=== PATIENT | female | born 2000 | race Caucasian/White ===

== ENCOUNTER 2020-10-18 19:05 | Emergency (ER) | payer OTHER, MEDICAID, SELFPAY ==
[2020-10-18 19:08] VITALS: BP 110/65; PULSE 83; RESP 18; TEMP 36.9; O2SAT 100; BMI 32.9
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
[2020-10-18] MEDS: Ibuprofen 600 MG TABLET PO (20:56)
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
== END 2020-10-18 21:02 | disposition home or self-care (01) ==
PROVIDERS: Emergency Provider Internal Medicine
DX: S29.9XXA Unspecified injury of thorax, initial encounter (principal); M54.6 Pain in thoracic spine; V43.52XA Car driver injured in collision with other type car in traffic accident, initial encounter; Y93.9 Activity, unspecified; Y92.410 Unspecified street and highway as the place of occurrence of the external cause; Y99.9 Unspecified external cause status; Z79.899 Other long term (current) drug therapy
CPT/HCPCS: 99284

== ENCOUNTER 2021-02-01 15:26 | Outpatient (REF) | payer MEDICAID, SELFPAY | END 2021-02-01 15:27 | disposition home or self-care (01) | LOC: HO.LAB 15:26 | PROVIDERS: Visit Provider Internal Medicine | DX: Z20.822 Contact with and (suspected) exposure to COVID-19 (principal) | CPT/HCPCS: C9803; U0003; U0005 ==

== ENCOUNTER 2021-09-21 06:35 | Emergency (ER) | payer MEDICAID, SELFPAY ==
[2021-09-21 06:49] VITALS: BP 135/79; PULSE 86; RESP 16; TEMP 36.8; O2SAT 99; BMI 33.3
--- NOTE | 2021-09-21 07:50 | ED.GENADULT ---
HPI - General Adult General Chief complaint: General Medical Stated complaint: 7 Weeks /vomiting Time Seen by Provider: 09/21/21 07:47 Source: patient Mode of arrival: ambulatory Limitations: no limitations History of Present Illness HPI narrative: 21-year-old female for about 7 weeks by date came in for evaluation of vomiting for the past week. Patient described frequent vomiting for the past week with epigastric tenderness, patient declined any pelvic contractions or vaginal bleeding or spotting. Patient was prescribed a suppository medication by her OB for vomiting control, patient vomited this morning and felt lightheadedness and dizzy decided to come to the ED for further evaluation. Related Data Previous Rx's Medication Instructions Recorded ibuprofen 600 mg tablet 600 mg PO Q6H PRN pain #20 tabs 10/18/20 ondansetron 4 mg disintegrating 4 mg PO Q8-12H PRN nausea and 09/21/21 tablet vomiting #5 tabs Allergies Allergy/AdvReac Type Severity Reaction Status Date / Time No Known Allergies Allergy Verified 10/18/20 20:21 Review of Systems Review of Systems: All other systems are reviewed and are negative Constitutional: Reports as per HPI and Reports no additional constitutional complaints Eyes: Reports as per HPI and Reports no additional eye complaints Reports system reviewed and no additional complaints, except as documented Cardiovascular: Reports as per HPI and Reports no additional cardiovascular complaints Respiratory: Reports as per HPI and Reports no additional respiratory complaints Gastrointestinal: Reports as per HPI and Reports no additional gastrointestinal complaints Genitourinary: Reports no additional female genitourinary complaints Musculoskeletal: Reports no additional musculoskeletal complaints Skin/Breast: Reports system reviewed and no additional complaints, except as docu Psychiatric: Reports no additional psychiatric complaints Endocrine: Reports no additional endocrine complaints Hematologic/Lymphatic: Reports no additional hematologic/lymphatic complaints Allergic/Immunologic: Reports no additional allergic/immunologic complaints Reports system reviewed and no additional complaints, except as documented and Reports Abnormal speech present PMFSH Past Medical History Medical History No acute medical problems Surgical History No history of previous surgery Social History Social History Advance Directives: No Advance Directives Information Provided: Yes Physical Exam ED Vital Signs: Vital Signs - 24 hr 09/21/21 06:49 Temperature 98.3 F Pulse Rate 86 Respiratory Rate 16 Blood Pressure 135/79 Pulse Oximetry 99 Oxygen Delivery Method Room Air BMI result Body Mass Index 33.3 Vital signs have been reviewed as appeared to be correct. Blood pressure normal. Heart rate normal. Respiration rate normal. Temperature normal. Oxygen saturation normal. Appearance: Alert. Oriented X3. No acute distress. Head: Normal external exam. Normocephalic. Atraumatic. No Yen signs noted. No raccoon eyes noted Eyes: PERRLA. EOMI. Conjunctiva and sclera normal. Eyelids normal. ENT: TM's Normal. Pharynx normal. Uvula midline. Moist mucous membranes. No trismus noted. No drooling noted. No muffled voice noted. Neck: Normal inspection. Neck supple. FROM. No adenopathy. Thyroid Normal. No meningeal signs. No neck mass noted. CVS: Normal heart rate and rhythm. Heart sound normal. No murmurs noted. Pulses normal throughout. Respiratory: No respiratory distress. Painless inspiration. Breath sounds normal. No wheezes/rales/rhonchi noted. Chest nontender. No accessory muscle usage noted or decreased air movement noted. Abdomen: Soft and nontender. Bowel sounds normal in all 4 quadrants. No distention noted. No organomegaly noted. No visible injury noted. Back: No CVA tenderness. Full range of motion noted. Skin: Skin warm and dry. Normal skin color. Normal skin turgor. No rashes/lesions/lacerations noted. Extremities: No lower extremity edema. Extremities exhibit normal range of motion. Extremities nontender. Neuro: Oriented X 3. Cranial nerve exam: II-XII are grossly intact No motor deficit. No sensory deficit. Reflexes normal. Course Course Course Narrative: 21-year-old female came in with vomiting thought to be hyper emesis gravidarum, patient's symptoms improved with IV fluid and IV Zofran, able to tolerate p.o. intake, no lightheadedness, still complaining of mild epigastric tenderness assuming from vomiting and gastritis. Medical Decision Making Lab Data Lab results reviewed: Yes I reviewed the patient's lab results. Result diagrams: 09/21/21 08:04 09/21/21 08:04 Labs: Lab Results 09/21/21 09/21/21 09/21/21 Range/Units 08:04 08:04 10:41 WBC 10.4 (4.8-10.8) X10*3/uL RBC 4.85 (4.20-5.50) X10*6/uL Hgb 12.6 (12.0-16.0) g/dl Hct 38.6 (37.0-47.0) % MCV 79.6 L (80.0-98.0) fL MCH 26.0 L (27.0-33.0) pg MCHC 32.6 (31.0-35.0) g/dl RDW 12.8 (11.0-16.0) % Plt Count 233 (160-400) X10*3/uL MPV 11.3 (9.4-12.3) fL Immature Gran % (Auto) 0.2 (0.0-0.4) % Neut % (Auto) 74.2 H (45-73) % Lymph % (Auto) 19.5 L (20-40) % [place] % (Auto) 5.4 (2-11) % Eos % (Auto) 0.4 (0-4) % Baso % (Auto) 0.3 (0-2) % Lymph # (Auto) 2.0 (1.2-4.9) X10*3/uL [place] # (Auto) 0.6 (0.1-1.2) X10*3/uL Eos # (Auto) 0.0 (0.0-0.4) X10*3/uL Baso # (Auto) 0.0 (0.0-0.2) X10*3/uL Abs Immat Gran (auto) 0.02 (0.00-0.03) X10*3/uL Absolute Neuts (auto) 7.7 (2.0-8.3) x10*3/uL Absolute Nucleated RBC 0.000 (0.0-0.012) X10*3/uL Nucleated RBC % (auto) 0.0 (0.0-0.2) /100WBC Sodium 137 (135-145) mmol/L Potassium 4.0 (3.3-5.1) mmol/L Chloride 102 (96-108) mmol/L Carbon Dioxide 25 (22-29) mmol/L Anion Gap 14 (12-20) BUN 9 (9-16) mg/dL Creatinine 0.84 (0.5-1.4) mg/dL Estim Creat Clear Calc 103.7 Estimated GFR > 60 Random Glucose 97 (60-115) mg/dL Calcium 9.7 (8.4-10.2) mg/dL Total Bilirubin 0.8 (0.0-1.0) mg/dL Direct Bilirubin 0.3 (0.0-0.5) mg/dL AST 14 (5-31) U/L ALT 13 (0-31) U/L Alkaline Phosphatase 89 (39-117) U/L Total Protein 8.7 H (6.5-8.0) g/dL Albumin 4.9 (3.5-5.0) g/dL Lipase 16 (8-78) U/L Beta HCG, Quant [id number] mIU/mL Urine Color DK YELLOW Urine Appearance HAZY Urine pH 6.0 (5.0-8.0) Ur Specific [place] >= 1.030 H (1.005-1.025) Urine Protein TRACE (NEG-TRACE) MG/DL Urine Glucose (UA) NEG (NEG) MG/DL Urine Ketones 40 (NEG) MG/DL Urine Blood NEG (NEG) Urine Nitrite NEG (NEG) Ur Leukocyte Esterase NEG (NEG) Discharge Plan Discharge Clinical Impression: Hyperemesis gravidarum Patient Disposition: Home, Self-Care Instructions: Hyperemesis Gravidarum (ED) Prescriptions: New ondansetron 4 mg tablet,disintegrating 4 mg PO Q8-12H PRN (Reason: nausea and vomiting) Qty: 5 0RF No Action ibuprofen 600 mg tablet 600 mg PO Q6H PRN (Reason: pain) Qty: 20 0RF Referrals: Desiree Etienne, [employer] [Primary Care Provider] -
[2021-09-21] MEDS: 0.9 % Sodium Chloride 1,000 ML 999 ML IV (08:05)
[2021-09-21] MEDS: ondansetron HCL 4 MG/2 ML VIAL IVPUSH (08:05)
[2021-09-21 08:09] LABS: MANUAL DIFF FLAG NO
[2021-09-21 08:11] LABS: Basophils Percent Auto 0.3 % (0-2); Eosinophils Percent Auto 0.4 % (0-4); Hematocrit 38.6 % (37.0-47.0); Hemoglobin 12.6 g/dl (12.0-16.0); Imm Gran Abs Auto 0.02 X10*3/uL (0.00-0.03); Imm Gran Pct Auto 0.2 % (0.0-0.4); Lymphocytes Percent Auto 19.5 % (20-40); Mean Corpuscular HGB Conc 32.6 g/dl (31.0-35.0); Mean Corpuscular Volume 79.6 fL (80.0-98.0); Mean Platelet Volume 11.3 fL (9.4-12.3); Monocytes Absolute Auto 0.6 X10*3/uL (0.1-1.2); Monocytes Percent Auto 5.4 % (2-11); Neutrophils Absolute Auto 7.7 x10*3/uL (2.0-8.3); Neutrophils Percent Auto 74.2 % (45-73); Platelet Count 233 X10*3/uL (160-400); Red Blood Count 4.85 X10*6/uL (4.20-5.50); Red Cell Distribution Width 12.8 % (11.0-16.0); White Blood Count 10.4 X10*3/uL (4.8-10.8)
[2021-09-21 08:28] LABS: Alanine Aminotransferase 13 U/L (0-31); Albumin Level 4.9 g/dL (3.5-5.0); Alkaline Phosphatase 89 U/L (39-117); Anion Gap 14 (12-20); Aspartate Amino Transferase 14 U/L (5-31); Bilirubin Direct 0.3 mg/dL (0.0-0.5); Bilirubin Total 0.8 mg/dL (0.0-1.0); Blood Urea Nitrogen 9 mg/dL (9-16); Calcium 9.7 mg/dL (8.4-10.2); Carbon Dioxide 25 mmol/L (22-29); Chloride 102 mmol/L (96-108); Creatinine Clr Calc Pharmacy 103.7; Estimated Glomerular Filt Rate > 60; Glucose Random 97 mg/dL (60-115); Lipase 16 U/L (8-78); Sodium 137 mmol/L (135-145); Total Protein 8.7 g/dL (6.5-8.0)
[2021-09-21 10:47] LABS: Appearance Urine HAZY; Color Urine DK YELLOW; Glucose Urine UA NEG (NEG); Leukocyte Esterase Urine NEG (NEG); Nitrite Urine NEG (NEG); Specific Gravity - Urine >= 1.030 (1.005-1.025); Urine Blood NEG (NEG); Urine Ketones 40 MG/DL (NEG); Urine Protein TRACE MG/DL (NEG-TRACE)
== END 2021-09-21 11:28 | disposition home or self-care (01) ==
PROVIDERS: Emergency Provider Emergency Medicine; PCP Registered Nurse
DX: O26.91 Pregnancy related conditions, unspecified, first trimester (principal); Z3A.01 Less than 8 weeks gestation of pregnancy; Z79.899 Other long term (current) drug therapy
CPT/HCPCS: 36415; 80048; 80076; 81003; 83690; 84702; 85025; 96374; 99283; 99284; J2405

== ENCOUNTER 2022-02-17 14:46 | Outpatient (REF) | payer MEDICAID, SELFPAY ==
[2022-02-17 15:21] LABS: COVID-19 Test Positive (Negative); IDNOW Serial# BCCEAD1C
== END 2022-02-17 14:47 | disposition home or self-care (01) ==
LOC: HO.LAB 14:46
PROVIDERS: Visit Provider Internal Medicine
DX: Z20.822 Contact with and (suspected) exposure to COVID-19 (principal)
CPT/HCPCS: 87635; C9803

== ENCOUNTER 2023-06-12 10:22 | Outpatient (REF) | payer MEDICAID, SELFPAY ==
[2023-06-12 12:44] LABS: Estimated Average Glucose 111 mg/dL; Hemoglobin A1c % 5.5 % (<6.0)
[2023-06-12 13:23] LABS: Anion Gap 11 (12-20); Blood Urea Nitrogen 8 mg/dL (9-16); Calcium 8.8 mg/dL (8.4-10.2); Carbon Dioxide 23 mmol/L (22-29); Chloride 109 mmol/L (96-108); Estimated Glomerular Filt Rate > 60; Glucose Random 84 mg/dL (60-115); Potassium 4.2 mmol/L (3.3-5.1); Sodium 139 mmol/L (135-145)
[2023-06-13 05:00] LABS: HIV AB/AG Nonreactive (Nonreactive); HIV Num 1 0.06 S/CO (0.00-0.99); ~HepC Num1 0.13 S/CO (0.00-0.79); ~Hepatitis C Antibody Nonreactive (Nonreactive)
[2023-06-13 07:02] LABS: CT PCR NOT DETECTED (Not Detect.); NG PCR NOT DETECTED (Not Detect.)
[2023-06-13 11:38] LABS: RPR Rapid Plasma Reagin NON-REACTIVE (NON-REACTIVE)
== END 2023-06-12 10:23 | disposition home or self-care (01) ==
LOC: HO.HHCL 10:22
PROVIDERS: Visit Provider Nurse Practitioner Family
DX: Z00.00 Encounter for general adult medical examination without abnormal findings (principal); Z11.4 Encounter for screening for human immunodeficiency virus [HIV]; Z11.3 Encounter for screening for infections with a predominantly sexual mode of transmission
CPT/HCPCS: 0353U; 36415; 80048; 83036; 86592; 86803; 87389

== ENCOUNTER 2023-09-18 14:43 | Outpatient (REF) | payer MEDICAID, SELFPAY ==
[2023-09-18 16:10] LABS: MANUAL DIFF FLAG NO
[2023-09-18 16:17] LABS: Basophils Percent Auto 0.3 % (0-2); Eosinophils Absolute Auto 0.2 X10*3/uL (0.0-0.4); Eosinophils Percent Auto 1.5 % (0-4); Hematocrit 34.3 % (37.0-47.0); Hemoglobin 10.8 g/dl (12.0-16.0); Imm Gran Abs Auto 0.02 X10*3/uL (0.00-0.03); Imm Gran Pct Auto 0.2 % (0.0-0.4); Lymphocytes Absolute Auto 3.1 X10*3/uL (1.2-4.9); Lymphocytes Percent Auto 32.3 % (20-40); Mean Corpuscular HGB Conc 31.5 g/dl (31.0-35.0); Mean Corpuscular Hemoglobin 24.1 pg (27.0-33.0); Mean Corpuscular Volume 76.6 fL (80.0-98.0); Mean Platelet Volume 12.1 fL (9.4-12.3); Monocytes Absolute Auto 0.6 X10*3/uL (0.1-1.2); Monocytes Percent Auto 5.7 % (2-11); Neutrophils Absolute Auto 5.8 x10*3/uL (2.0-8.3); Platelet Count 194 X10*3/uL (160-400); Red Blood Count 4.48 X10*6/uL (4.20-5.50); Red Cell Distribution Width 14.9 % (11.0-16.0); White Blood Count 9.7 X10*3/uL (4.8-10.8)
[2023-09-18 16:40] LABS: Alanine Aminotransferase 11 U/L (0-31); Alkaline Phosphatase 77 U/L (39-117); Anion Gap 10 (12-20); Aspartate Amino Transferase 13 U/L (5-31); Bilirubin Total 0.3 mg/dL (0.0-1.0); Blood Urea Nitrogen 9 mg/dL (9-16); Carbon Dioxide 23 mmol/L (22-29); Chloride 108 mmol/L (96-108); Estimated Glomerular Filt Rate > 60; Glucose Random 103 mg/dL (60-115); Potassium 3.7 mmol/L (3.3-5.1); Sodium 137 mmol/L (135-145); Total Protein 7.5 g/dL (6.5-8.0)
[2023-09-18 16:48] LABS: HCG Quantitative < 2 mIU/mL
== END 2023-09-18 14:44 | disposition home or self-care (01) ==
LOC: HO.HHCL 14:43
PROVIDERS: Visit Provider Nurse Practitioner Family
DX: R11.2 Nausea with vomiting, unspecified (principal)
CPT/HCPCS: 36415; 80053; 84702; 85025

== ENCOUNTER 2023-10-04 08:27 | Outpatient (REF) | payer MEDICAID, SELFPAY ==
--- NOTE | ~2023-10-04 | US_ITS ---
EXAMINATION: US ABDOMEN COMPLETE CLINICAL INFORMATION: Right upper quadrant pain, frequent emesis, negative hCG, question gallstones. COMPARISON: X-ray K[facility] 04/20/2018. TECHNIQUE: Real-time imaging of the abdominal viscera. Limited visualization due to bowel gas and body habitus. FINDINGS: PANCREAS: Limited visualization of pancreatic tail and head. Imaged portion of pancreatic body is unremarkable. ABDOMINAL AORTA: Limited visualization. INFERIOR VENA CAVA: Visualized portions are normal. LIVER: Hepatomegaly, 16.0 cm. Increased hepatic parenchymal heterogeneity and echogenicity could be associated with hepatocellular disease/hepatic steatosis and substantially limits visualization. Correlation with liver function tests and clinical exam recommended to determine further management. GALLBLADDER: No gallstones. No gallbladder wall thickening. COMMON BILE DUCT: Normal in caliber measuring 0.2 cm in diameter. RIGHT KIDNEY: No hydronephrosis. No renal calculi. Limited visualization. The kidney measures 12.3 cm in maximum dimension. LEFT KIDNEY: No hydronephrosis. No renal calculi. Limited visualization. The kidney measures 10.7 cm in maximum dimension. SPLEEN: Normal. The spleen measures 11.1 cm in maximum dimension. FREE FLUID: None. US/US abdomen complete IMPRESSION: Hepatomegaly, 16.0 cm. Increased hepatic parenchymal heterogeneity and echogenicity could be associated with hepatocellular disease/hepatic steatosis and substantially limits visualization. Correlation with liver function tests and clinical exam recommended to determine further management.
== END 2023-10-04 08:28 | disposition home or self-care (01) ==
LOC: HO.US 08:27
PROVIDERS: PCP Nurse Practitioner Family; Visit Provider Nurse Practitioner Family
DX: R11.2 Nausea with vomiting, unspecified (principal)
CPT/HCPCS: 76700

== ENCOUNTER 2023-10-19 14:01 | Outpatient (REF) | payer MEDICAID, SELFPAY ==
[2023-10-23 21:52] LABS: Immunoglobulin A 377 mg/dL (47-310); Transglutaminase IgA <1.0 U/mL
== END 2023-10-19 14:02 | disposition home or self-care (01) ==
LOC: HO.HHCL 14:01
PROVIDERS: Visit Provider Nurse Practitioner Family
DX: K59.00 Constipation, unspecified (principal); R14.0 Abdominal distension (gaseous)
CPT/HCPCS: 36415; 82784; 86364

== ENCOUNTER 2023-11-22 13:14 | Outpatient (REF) | payer MEDICAID, SELFPAY | END 2023-11-22 13:15 | disposition home or self-care (01) | LOC: HO.LNP 13:14 | PROVIDERS: Visit Provider Nurse Practitioner Family | DX: R11.2 Nausea with vomiting, unspecified (principal) | CPT/HCPCS: 87338 ==

== ENCOUNTER 2024-04-23 08:41 | Emergency (ER) | payer MEDICAID, SELFPAY ==
--- NOTE | ~2024-04-23 | US_ITS ---
EXAMINATION: US FIRST TRIMESTER OB HISTORY: abd pain, 6 wks preg TECHNIQUE: Endovaginal scanning was performed. FINDINGS: There is a single, live intrauterine . Incidental note is made of a calcified fibroid on the left measuring 2.7 x 2.0 x 2.2 cm. An additional left-sided fibroid is noted measuring 1.1 x 0.7 x 1.1 cm. AUA = 5 weeks 6 days MARGARITA(AUA) = 12/18/2024 LMP = 03/11/2024 GA(LMP) = 6 weeks 1 days MARGARITA(LMP) = 12/16/2024 CRL = 0.25 cm Yolk Sac: seen FHR = 102 bpm Right ovary: The right ovary is unremarkable in appearance measuring 3.2 x 1.9 x 2.2 cm. Left ovary: The left ovary is not visualized. Cul-de-sac: No free fluid US/US OB pelvic and transvaginal IMPRESSION: Single, live intrauterine of estimated gestational age 5 weeks, 6 days. The heart rate is 102 bpm which is low. Follow-up is recommended.. Electronically signed by: Edward Spain MD 04/23/2024 01:26 PM [facility]
[2024-04-23 09:08] VITALS: BP 138/75; PULSE 87; RESP 16; TEMP 37; O2SAT 98; BMI 34.7
[2024-04-23 09:33] LABS: MANUAL DIFF FLAG NO
[2024-04-23 09:34] LABS: Basophils Percent Auto 0.3 % (0-2); Eosinophils Percent Auto 0.3 % (0-4); Hematocrit 38.7 % (37.0-47.0); Hemoglobin 12.7 g/dl (12.0-16.0); Imm Gran Abs Auto 0.02 X10*3/uL (0.00-0.03); Imm Gran Pct Auto 0.3 % (0.0-0.4); Lymphocytes Absolute Auto 1.5 X10*3/uL (1.2-4.9); Lymphocytes Percent Auto 22.4 % (20-40); Mean Corpuscular HGB Conc 32.8 g/dl (31.0-35.0); Mean Corpuscular Hemoglobin 24.4 pg (27.0-33.0); Mean Corpuscular Volume 74.3 fL (80.0-98.0); Mean Platelet Volume 11.2 fL (9.4-12.3); Monocytes Absolute Auto 0.6 X10*3/uL (0.1-1.2); Monocytes Percent Auto 8.5 % (2-11); Neutrophils Absolute Auto 4.6 x10*3/uL (2.0-8.3); Neutrophils Percent Auto 68.2 % (45-73); Platelet Count 186 X10*3/uL (160-400); Red Blood Count 5.21 X10*6/uL (4.20-5.50); Red Cell Distribution Width 14.3 % (11.0-16.0); White Blood Count 6.7 X10*3/uL (4.8-10.8)
--- OUTSIDE RECORDS SUMMARY | 2024-04-23 09:52 | XMS_ITS | Encounter Summary ---
Author Organization [employer] Address [address] [place] [address] Care Team Providers Care Precision Lens Technician Name Role Phone Danielle Hinkle NP Primary Care Provider [phone] Reason for Visit * Reason Onset Date Comments Medication Question 10/17/2023 Encounter Details Date Type Department Care Team ([facility] st Contact Info) Description 10/17/2023 Telephone [facility] [address] [place] [address] Danielle Hinkle NP [address] [place] [address] Medication Question Social History Tobacco Use Types Packs/Day Years Used Date Smoking Tobacco: Never Alcohol Use Standard Drinks/Week Comments Never 0 (1 standard drink = 0.6 oz pur e alcohol) Alcohol Answer Date Recorded Frequency of Alcohol Consumption Not on file 09/13/2023 Average Number of Drinks Not on file 024 Frequency of Binge Drinking Not on file 08/19 Score 0 09/13/2023 Depression Answer Date Recorded Patient Health Questionnaire-9 Score 0 06/12/2023 Patient Health Questionnaire-9 Score 0 06/12/2023 Last PHQ-9: Questionnaire Data Not on file 0 06/12/2023 Housing Stability Answer Date Recorded What is your housing situation today? I have john montero 06/12/[address] you li ve. Do you have problems with any of the following? None of the above 06/12/2023 Food Insecurity Answer Date Recorded Within the past 12 months, y ou worried that your food would run out before you got money to buy more: Never True 06/12/2023 Within the past 12 months,th e food you bought just didn't last and you didn't have enough money to get more: Never True Transportation Answer Date Recorded In the past 12 months, has l ack of transportation kept you from medical appts, meetings, work or from getting things needed for daily living? No 06/12/2023 Utilities Answer Date Recorded In the past 12 months, has t he electric, gas, oil or water company threatened to shut off services in your home? 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 T/C to Pt. To inform that psyllium is ready to picking belt operator. Please review and advise. * Telephone Encounter - Leann Cronin - 10/17/2023 9:22 AM EDT Tc from pt calling to inform insurance does not cover medication terbinafine (LamISIL AT) 1 % creamand pharmacy is out of stock for psyllium (Metamucil) 0.36 g capsule . Pt would like to know if a different medications can be sent. Please call pt to clarify. documented in this encounter Plan of Treatment Not on file documented as of this encounter Visit Diagnoses Not on filedocumented in this encounter Additional Health Concerns Assessment Noted Time PHQ-9 Depression Total Score: 0 06/12/19 24 9:01 AM EDT documented as of this encounter Care Teams Precision Lens Technician Relationship Specialty Start Date End Date Danielle Hinkle NP [address] [place] [address] PCP - General Family Medicine 04/28/23 documented as of this encounter
--- OUTSIDE RECORDS SUMMARY | 2024-04-23 09:52 | XMS_ITS | Clinical Summary ---
Author Organization [facility] Address [address] [place] [address] Care Team Providers Care Asset Protection Associate Name Role Phone Unavailable Primary Care Provider Unavailabl e Allergies Active Allergy Reactions Criticality Noted Date Comments Cat Hair Standardized Allergenic Extract Itching 10/11/2021 With contact, gets very itchy, and sneezing. Dog Dander Itching 10/11/2021 Gets itchy with contact and sneezing. Levonorgestrel-Ethinyl Estrad 09/30/2020 Medications Medication Sig Dispensed Refills Start Date End Date Status PNV no.95/ferrous fum/folic ac ( ORAL) TAKE 1 TABLET BY MOUTH EVERY DAY 10/04/2022 Active acetaminophen (TYLENOL) 325 mg tablet Take 2 Tablets by mouth every 6 hours as needed for Pain for up to 10 days. 09/29/2021 Active aspirin 81 mg EC tablet Take 2 Tablets by mouth daily for 180 days. 02/17/2022 Active docusate sodium (COLACE) 100 mg capsule Take 1 Capsule by mouth daily for 90 days. Take 1 capsule by mouth daily 04/14/2022 Active ferrous sulfate 325 mg (65 mg elemental iron) tablet Take 1 tablet (325 mg total) by mouth 1 (one) time each day. 02/14/2022 Active glycerin-witch Tammy (A.E.R. Witch Tammy) 12.5-50 % pads Apply to anorectal area as needed up to 6 times daily or after each bowel movement 04/14/2022 Active pyridoxine (VITAMIN B-6) 25 mg tablet Take 1 Tablet by mouth 3 times daily as needed (Nausea). 12/08/2021 Active Active Problems Problem Noted Date Diagnosed Date Essential (primary) hypertension 04/14/2022 Overview (04/22/2024): no medications Start ASA 162 mg at 12 weeks until delivery for pre-eclampsia prevention Level 2 anatomy US Q 4 week growth US starting at 28 weeks Weekly NST with BP and urine protein dip at 32 weeks Twice weekly testing at 36 weeks Start meds for SBP> 160 or DBP> 110 Deliver 38-39 weeks on no meds Deliver 37-39 weeks on meds Reviewed with pt her medical history of HTN with her mother on the phone. States she had an episode of elevated BP at age 12 or 13. Never put on medications. No other elevated BP since. Last Assessment & Plan: NST reactive. Growth US ordered. Scheduled for IOL at 39 weeks on 05/02/22 @ 8pm. We reviewed the induction process. We also reviewed pain control options in labor. All questions answered. COVID-19 affecting in third trimester 02/17/2022 Overview (04/22/2024): Symptoms started 02/14/22, +Covid 02/17/22. COVID in *Mildly symptomatic (signs or sx without SOB or abnormal imaging) OR Moderately symptomatic (lower respiratory disease by clinical or imaging assessment AND O2 sat >93% RA): 81 mg ASA daily at diagnosis, growth 4-6 weeks after COVID or 32 weeks, whichever is later. No other surveillance. -32wk EFW 80%ile 03/14/22 Last Assessment & Plan: 32 week US EFW 80%ile Anemia affecting 02/14/2022 Overview (04/22/2024): Iron 03/17/22 hgb 9.5, increased iron to twice daily Last Assessment & Plan: Repeat CBC ordered Continue Iron Atypical squamous cells of u ndetermined significance (ASCUS) on Papanicolaou smear of cervix 11/03/2021 Overview (04/22/2024): Repeat pap PP Last Assessment & Plan: Repeat Pap today. Maternal varicella, non-immune 11/01/2021 Overview (04/22/2024): Last Assessment & Plan: Varicella equivocal. Patient instructed to call immediately if she comes into contact with anybody who has chicken pox. Encouraged vaccination PP. Constipation 10/11/2021 Overview (04/22/2024): Last Assessment & Plan: Improved, encouraged hydration. Heartburn during in first trimester History of marijuana use 10/11/2021 Overview (04/22/2024): +UDS for MJ on intake Reports cessation with +UPT 02/11/22 UDS negative Last Assessment & Plan: Patient aware that UDS will be done on admission to [facility]. Adnexal mass 10/01/2020 Overview (04/22/2024): Last Assessment & Plan: I discussed ultrasound noted in prior records, which is suggestive of subserosal fibroid. Reviewed etiology and prevalence of fibroids. Patient reassured that fibroids are nearly always benign. Reviewed common s/sx of fibroids and discussed that, as she is not symptomatic, no intervention is required at this time. I did order another pelvic ultrasound to further characterize the adnexal lesion as the previous ultrasound report is unavailable for review as well as to assess for any change in size or characteristic. Bladder mass 05/30/2020 Overview (04/22/2024): 2019 cysto - [place] to be benign bladder leiomyoma Has ultrasound schedule 11/11 and f/u with urology 11/19 - no mass found on f/u. Will f/u again . 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 Has follow-up ultrasound on 11/11 and f/u consultation with urology on 11/19 Immunizations Name Administration Dates Next Due HPV 9-valent (Gardisil) 9yo to less than 46yo Influenza Quadravalent, MDCK , 0.5ml, preservative free (Flucelvax) 6mo and older 01/05/2022 Pfizer SARS-CoV-2 COVID-19, mRNA, LNP-S, preservative free 05/14/2021 Tdap Tetanus diptheria acell ular pertussis (Boostrix; Adacel) 7yo and older 03/02/2022 Varicella live (Varivax) 12mo and older 05/20/19 23 Surgical History Surgery Date Site/Laterality Comments BREAST BIOPSY PROCEDURE: [place] BX BREAST NEEDLE CORE W/O IMAGING GUIDANCE SPX OTHER SURGICAL HISTORY 2016 PROCEDURE: COLONOSCOPY FLEX-PROX SPLEN FLEX; W/STENT PLCMT; COMMENT: done for hx of constipation WISDOM TOOTH EXTRACTION PROCEDURE: HISTORICAL WISDOM TEETH EXTRACTION Medical History Medical History Date Comments Essential (primary) hypertension DX:Essential (primary) hypertension; COMMENT: no medications Acid reflux DX:Acid reflux Breast lump DX:Breast lump; COMMENT: s/p biopsy (benign) Anemia DX:Anemia General counseling and advic e on contraceptive management 10/01/2020 DX:General counseling and ad vice on contraceptive management HPV vaccine counseling 07/15/2021 DX:HPV va ccine counseling Family History Medical History Relation Name Comments Breast cancer Aunt paterna No Known Problems Brother No Known Problems Father Anemia Mother Arthritis Paternal Grandfather Diabetes Paternal Grandmother Hypertension Paternal Grandmother DM Asthma Sister Throat cancer Uncle paternal Colon cancer Neg Hx Ovarian cancer Neg Hx Pancreatic cancer Neg Hx Uterine cancer Neg Hx Relation Name Status Comments Aunt paterna Alive Brother Alive Father Alive Maternal Grandfather unknown Maternal Grandmother Mother Alive Paternal Grandfather Alive Paternal Grandmother Sister Alive Uncle paternal Alive Social History Tobacco Use Types Packs/Day Years Used Date Smoking Tobacco: Never Smokeless Tobacco: Never Alcohol Use Standard Drinks/Week Comments No 0 (1 standard drink = 0.6 oz pur e alcohol) Sex and Gender Information Value Date Recorded Sex Assigned at Not on file Gender Identity Not on file Sexual Orientation Not on file Obstetrics History Last Filed Vital Signs Vital Sign Reading Time Taken Comments Blood Pressure 117/76 10/17/2022 4:13 PM EDT Pulse 73 10/17/2022 4:13 PM EDT Temperature - - Respiratory Rate - - Oxygen Saturation - - Inhaled Oxygen Concentration - - Weight 95.6 kg (210 lb 12.8 oz) 10/17/2022 4:13 PM EDT Height 158.8 cm (5' 2.5 ) 10/17/2022 4:13 PM EDT Body Mass Index 37.94 10/17/2022 4:13 PM EDT Plan of Treatment Upcoming Encounters Date Type Department Care Team (Late st Contact Info) Description 04/26/2024 2:00 PM EST Clinical Support Obstetrics and Gynecology [address] [address] Health Maintenance Due Date Last Done Comments Hepatitis B Vaccines (1 of 3 - 19+ 3-dose series) 2017 HPV Vaccines (2 - 3-dose series) 08/12/2021 07/15/2021 Cholesterol Screening (Lipid Panel) 02/26/2022 Depression Screening 02/26/2022 Social Influencers of Health Screening 02/26/2022 Hypertension/CHF/CAD Annual BMP Blood Test 04/18/2023 COVID-19 Vaccine (2 - 2023-2 5 season) 2023 05/14/2021 Influenza Vaccine (#1) 2023 01/05/2022 Cervical Cancer Screening: Pap Smear 10/17/2025 10/17/2022, 10/17/2022, 07/15/2021 DTaP,Tdap,and Td Vaccines (2 - Td or Tdap) 03/02/2032 03/02/2022 HIV Screening Completed 10/28/2021 Hepatitis C Screening Completed 10/28/2021 Gonorrhea/Chlamydia Screening Discontinued 04/14/2022 Varicella Vaccines Aged Out 05/19/2022 No longer eligible based on patient's age to complete this topic HIB Vaccines Aged Out No longer eligi ble based on patient's age to complete this topic Hepatitis A Vaccines Aged Out No long er eligible based on patient's age to complete this topic IPV Vaccines Aged Out No longer eligi ble based on patient's age to complete this topic MMR Vaccines Aged Out No longer eligi ble based on patient's age to complete this topic Meningococcal ACWY Vaccine Aged Out N o longer eligible based on patient's age to complete this topic Pneumococcal Vaccine: Pediatrics (0 to 5 Years) and At-Risk Patients (6 to 64 Years) Aged Out No longer eligible based on patient's age to complete this topic RSV Immunization Patients Under 20 months Aged Out No longer eligible based on patient's age to complete this topic Procedures Procedure Name Priority Date/Time Associated Diagnosis Comments PAP SMEAR Routine 10/17/2022 GONORRHEA/CHLAMYDIA SCRREENING Routine 04/14/2022 HEPATITIS C SCREENING Routine 10/28/2021 HIV SCREENING Routine 10/28/2021 from Last 3 Months or Most Recently Relevant to Health Maintenance Results * Pap smear (10/17/2022) 10/17/2022 Narrative HISTORICAL TESTING LAB RESULTING AGENCY - 10/26/2022 2:30 PM EDT [id number] THINPREP PAP, IMAGED: ATYPICAL SQUAMOUS CELLS OF UNDETERMINED SIGNIFICANCE (ASCUS) . FUNGAL ORGANISMS MORPHOLOGICALLY CONSISTENT WITH [place] SPP. NIC SELLERS , CT(ASCP) (CASE SCREENED 10 26 2022) PAU BERNAL M.D. , PATHOLOGIST (CASE ELECTRONICALLY SIGNED 10 26 2022) ADEQUACY: SATISFACTORY ENDOCERVICAL/TRANSFORMATION ZONE COMPONENT ABSENT. SOURCE: THINPREP PAP, CERVICAL, IMAGED CLINICAL INFORMATION: POST , PAP HX POSITIVE ASCUS, HPV POS 06/2021, LMP 09/16/22, [Z12.4] Adia Kumari MD LAB CYTOLOGY [facility] HISTORICAL TESTING LAB RESULTING AGENCY * Gonorrhea/Chlamydia Screening (04/14/2022) Gonorrhea/Chla mydia Screening abstracted Historical Provider MD LAWANDA SOLIS E * HIV Screening (10/28/2021) HIV Screening abstracted Historical Provider MD LAWANDA SOLIS E * Hepatitis C Screening (10/28/2021) Hepatitis C Screening abstracted Historical Provider MD LAWANDA Saldana from Last 3 Months or Most Recently Relevant to Health Maintenance
--- OUTSIDE RECORDS SUMMARY | 2024-04-23 09:53 | XMS_ITS | Clinical Summary ---
Author Organization [employer] Address [address] [facility] [address] [place] [address] Care Team Providers Care Room Cleaner Name Role Phone Danielle Hinkle DANTE Primary Care Provider [phone] Allergies Active Allergy Reactions Criticality Noted Date Comments Cat Dander Itching 10/11/2021 With contact, gets very itchy, and sneezing. Dog Epithelium Itching 10/11/2021 Gets itchy with contact and sneezing. Medications naproxen (Naprosyn) 500 MG tablet TAKE 1 TABLET BY MOUTH TWICE A DAY 60 tablet 4 Active fluticasone (Flonase) 50 MCG/ACT nasal sprayIndications: Seasonal allergic rhinitis, unspecified trigger SPRAY 1 - 2 SPRAY BY INTRANASAL ROUTE EVERY DAY IN EACH NOSTRIL NEEDED 48 mL 3 4 Active loratadine (Claritin) 10 MG tabletIndications :Seasonal allergic rhinitis, unspecified trigger Take 1 tablet (10 mg) by mouth in the morning. 30 tablet 2 4 Active desogestrel-ethin yl estradiol (Apri) 0.15-30 MG-MCG tabletIndications :Dysmenorrhea Take 1 tablet by mouth in the morning. 84 tablet 1 4 Active psyllium (Metamucil) 0.36 g capsuleIndication s:Constipation, unspecified constipation type Take 6 capsules (2.16 g) by mouth Once per day. 180 capsule 11 4 10/16/19 25 Active pantoprazole (ProtoNix) 40 MG EC tabletIndications :Nausea and vomiting in adult TAKE 1 TABLET (40 MG) BY MOUTH ONCE PER DAY. DO NOT CRUSH, CHEW, OR SPLIT. 90 tablet 4 12/15/19 25 Active Active Problems Problem Noted Date Diagnosed Date Constipation 10/16/2023 Assessment & Plan (11/16/2023 2:49 PM EDT): Continue metamecuil and hydration Follow up in 2-3 months sooner prn Assessment & Plan (11/11/2023 2:58 PM EDT): Reports ongoing alternating constipation and diarrhea, trial meteucil. If no improvement, referral to GI. Bloating symptom 10/16/2023 Assessment & Plan (11/11/2023 3:01 PM EDT): Improved acid reflux symptoms, reviewed importance of h pylori sample collection, completed ultrasound, but results not yet available Will check celiac panel. Tinea pedis of both feet 10/16/2023 Assessment & Plan (11/16/2023 2:49 PM EDT): Rx sent for topical therapy Assessment & Plan (11/11/2023 3:00 PM EDT): Consistent with tinea Rx as written below Nausea and vomiting in adult 09/13/2023 Assessment & Plan (09/23/2023 2:36 PM EDT): Nausea associated with acid reflux, which has been persistent daily, reviewed dietary modification, labs as ordered below, treat with pantoprazole. Space medication from ocps Encounter for health maintenance examination in adult 06/12/2023 Assessment & Plan (06/12/2023 10:08 AM EDT): Pap utd, followed by outside provider completed 10/09. Low CAD risk, anticipatory guidance reviewed, pt opts for STI screening today. Dietary counseling 06/12/2023 Assessment & Plan (06/12/2023 10:09 AM EDT): Pt goal is to increase water and decrease soda, in addition goal is to eat breakfast most days Exercise counseling 06/12/2023 Assessment & Plan (06/12/2023 10:09 AM EDT): Active at work and as a mom, continue Seasonal allergic rhinitis 06/12/2023 Assessment & Plan (06/12/2023 10:08 AM EDT): Resume flovent and oral anthistamine, Breast pain 06/08/2023 Fibrocystic breast changes 06/08/2023 Atypical squamous cells of u ndetermined significance (ASCUS) on Papanicolaou smear of cervix 11/03/2021 Overview (06/08/2023): Repeat pap PP Last Assessment & Plan: Repeat Pap today. History of marijuana use 10/11/2021 Overview (06/08/2023): +UDS for MJ on intake Reports cessation with +UPT 02/11/22 UDS negative Last Assessment & Plan: Patient aware that UDS will be done on admission to [facility]. 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 Encounter for counseling regarding contraception 10/01/2020 Overview (06/08/2023): Last Assessment & Plan: I counseled Samira that milk supply is usually not affected by combined OCP once established at the 6 week pablo, but in her case, it seems to have done so. I offered other options for contraception including Paragard IUD and other hormonal options, but she declines. She plans to use condoms. Assessment & Plan (09/23/2023 2:36 PM EDT): Pt wants to resume ocps , neg poc test today Bladder mass 05/30/2020 Overview (06/08/2023): 2019 cysto - [place] to be benign bladder leiomyoma Has ultrasound schedule 11/11 and f/u with urology 11/19 - no mass found on f/u. Will f/u again . 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 US and needle biopsy Resolved Problems Problem Noted Date Diagnosed Date Resolved Date Essential (primary) hypertension 04/14/2022 06/12/2023 Overview (06/08/2023): no medications Start ASA 162 mg at [...] answered. COVID-19 affecting in third trimester 02/17/2022 06/12/2023 Overview (06/08/2023): Symptoms started 02/14/22, +Covid 02/17/22. COVID in [...] week US EFW 80%ile Anemia affecting 02/14/2022 0 06/12/2023 Overview (06/08/2023): Iron 03/17/22 hgb 9.5, increased iron to twice daily Last Assessment & Plan: Repeat CBC ordered Continue Iron Maternal varicella, non-immune 11/01/2021 06/12/2023 Overview (06/08/2023): Last Assessment & Plan: Varicella equivocal. Patient instructed to call immediately if she comes into contact with anybody who has chicken pox. Encouraged vaccination PP. 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 to schedule f/u Fissure felt to be secondary to chronic constipation. Endoscopy/colonoscopy May 2016 Reflux esophagitis - omeprazole Constipation 06/12/2023 Overview (06/08/2023): On Miralax Last Assessment & Plan: Improved, encouraged hydration. Encounters Date Type Department Care Team Description 04/23/2024 Orders Only GENERIC EXTERNAL DATA DEPARTMENT Provider, Generic External Data from Last 3 Months Immunizations Name Administration Dates Next Due DTaP, 5 pertussis antigens 11/20/2002,,06/02/1999,01/11,1998 HPV 9-Valent 07/15/2021, 4,10/04/2012,10/05 HPV, Quadrivalent 10/17/2013,10/04/2012,10/06/19 12 Hep A, Adult 10/17/2013 Hep A, ped/adol, 2 dose 11/13/2014,10/17/2013 Hep B, Adolescent or Pediatric 06/02/1999,1998,1998 Hib (PRP-T) 11/12/1999, 0,01/11/1999,10/16 IPV 11/12/1999,01/11/1999,1998 Influenza Injectable Quadriv alant Preservative Free IIV4 MDCK 01/05/2022 Influenza injectable quadriv alent preservative free 06/12/2023,05/21/2019,05/11/2018,12/13,11/18/2015,11/13/2014 MMR 11/20/2002,08/25/1999 Meningococcal MCV4P ACYW-135 12/13/2016,10/06/19 12 OPV 11/20/2002 Pneumococcal Conjugate PCV 7 03/01/2004,11/12/19 00 Tdap 03/02/2022,10/06/2011 Varicella 05/19/2022,09/25/2008,08/25/1999 Social History Tobacco Use Types Packs/Day Years Used Date Smoking Tobacco: Never Tobacco Cessation:Counseling Given: Not Answered Alcohol Use Standard Drinks/Week Comments Never 0 [...] Orientation Straight 01/17/2022 10 :15 AM EDT Last Filed Vital Signs Vital Sign Reading Time Taken Comments Blood Pressure 130/76 11/10/2023 4:16 PM EDT Pulse 72 11/10/2023 4:16 PM EDT Temperature 36.7 ??C (98.1 ??F) 10/16/2023 4:07 PM ED T Respiratory Rate 16 11/10/2023 4:16 PM EDT Oxygen Saturation 97% 11/10/2023 4:16 PM EDT Inhaled Oxygen Concentration - - Weight 100 kg (220 lb 6.4 oz) 11/10/2023 4:16 PM EDT Height 157.5 cm (5' 2 ) 11/10/2023 4:16 PM EDT Body Mass Index 40.31 11/10/2023 4:16 PM EDT Plan of Treatment Health Maintenance Due Date Last Done Comments Family Planning (PISQ) 2013 HPV/Cotest 10/18/2023 07/15/2021 Pap Smear 10/18/2023 10/17/2022, 07/15/2021 COVID-19 Vaccine ( season) 2023 05/14/2021, 04/19/2020, 03/29/2020 Influenza Vaccine (#1) 2023 , 01/05/2022, 05/21/2019, Additional history exists Depression Screening 06/11/2024 06/12/2023, 06/12/19 24 SDOH Screening 06/11/2024 06/12/2023 Alcohol/Substance Use Screening 09/12/2024 09/13/2023 Tobacco Screening 11/09/2024 11/10/2023 DTaP/Tdap/Td Vaccines (8 - Td or Tdap) 03/02/2032 03/02/2022, 10/06/2011, 11/20/2002, Additional history exists Zoster Vaccines (1 of 2) 2048 RSV Patients and Patients Aged 60 years or older (1 - 1-dose 75+ series) 2073 Hepatitis B Vaccines Completed 06/02/1999, 1998, 1998 HIB Vaccines Completed 11/12/1999, 05/18, 01/11/1999, Additional history exists IPV Vaccines Completed 11/20/2002, 10/19, 01/11/1999, Additional history exists Pneumococcal Vaccine: Pediatrics (0 to 5 Years) and At-Risk Patients (6 to 49) Years) Aged Out 03/01/2004, 11/12/1999 No longer eligibl e based on patient's age to complete this topic Hepatitis A Vaccines Completed 11/13/2014, 10/17/2013, 10/17/2013 Meningococcal Vaccine Completed 12/13/2016, 012 HPV Vaccines Completed 07/15/2021, 09/19, 10/17/2013, Additional history exists HIV Screening Completed 06/12/2023, 03/03/2021 Hepatitis C Screening Completed 06/12/2023, 021 RSV under 20 months Aged Out No longe r eligible based on patient's age to complete this topic Rotavirus Vaccines Aged Out No longer eligible based on patient's age to complete this topic Procedures Procedure Name Priority Date/Time Associated Diagnosis Comments CBC WITH AUTO DIFFERENTIAL Routine 04/23/2024 9:27 AM EST HEPATITIS C ANTIBODY Routine 06/12/2023 10:29 AM EDT Encounter for health maintenance examination in adult HIV 1/2 ANTIGEN/ANTIBODY, FOURTH GENERATION W/RFL Routine 06/12/2023 10:29 AM EDT Encounter for health maintenance examination in adult HM PAP/HPV Routine 10/17/2022 8:18 AM EDT HM PAP/HPV Routine 07/15/2021 from Last 3 Months or Most Recently Relevant to Health Maintenance Results * (ABNORMAL) CBC auto differential (04/23/2024 9:27 AM EST) White Blood Count 6.7 4.8 - 10.8 X10*3/uL [facility] Red Blood Count 5.21 4.20 - 5.50 X10*6/uL [facility] Hemoglobin 12.7 12.0 - 16.0 g/dl [facility] Hematocrit 38.7 37.0 - 47.0 % [facility] Mean Corpuscular Volume 74.3(L) 80.0 - 98.0 fL [facility] Mean Corpuscular Hemoglobin 24.4(L) 27.0 - 33.0 pg [facility] Mean Corpuscular HGB Conc 32.8 31.0 - 35.0 g/dl [facility] Red Cell Distribution Width 14.3 11.0 - 16.0 % [facility] Platelet Count 186 160 - 400 X10*3/uL [facility] Mean Platelet Volume 11.2 9.4 - 12.3 fL [facility] Neutrophils Percent Auto 68.2 45 - 73 % [facility] Imm Gran Pct Auto 0.3 0.0 - 0.4 % [facility] Lymphocytes Percent Auto 22.4 20 - 40 % [facility] Monocytes Percent Auto 8.5 2 - 11 % [facility] Eosinophils Percent Auto 0.3 0 - 4 % [facility] Basophils Percent Auto 0.3 0 - 2 % [facility] NRBC Pct Auto 0.0 0.0 - 0.2 /100WBC [facility] Neutrophils Absolute Auto 4.6 2.0 - 8.3 x10*3/uL [facility] Imm Gran Abs Auto 0.02 0.00 - 0.03 X10*3/uL [facility] Lymphocytes Absolute Auto 1.5 1.2 - 4.9 X10*3/uL [facility] Monocytes Absolute Auto 0.6 0.1 - 1.2 X10*3/uL [facility] Eosinophils Absolute Auto 0.0 0.0 - 0.4 X10*3/uL [facility] Basophils Absolute Auto 0.0 0.0 - 0.2 X10*3/uL [facility] NRBC Abs Auto 0.000 0.0 - 0.012 X10*3/uL [facility] 04/23/2024 9:27 AM EST 04/23/2024 9:32 AM EST us Generic External Data Provider LAB BLOOD ORDERAB LES Final Result Performing Organization Address [facility] Co de Phone Number [facility] [address] [place] [phone] * Hepatitis C Ab (06/12/2023 10:29 AM EDT) Hepatitis C Antibody Nonreactive Nonreactive [facility] Comment:Antibodies to HCV no t detected; does not exclude early acuteHCV infection. Blood Venous blood specimen / Unknown 06/12/2023 10:29 AM EDT 06/12/2023 11:41 AM EDT us Danielle Hinkle MARRIAGE COUNSELOR MINISTER LAB BLOOD ORDERABLES Final Resul t Performing Organization Address [facility] de Phone Number [facility] [address] [place] [phone] * HIV-1/2 Antigen and Antibodies, Fourth Generation, with Reflexes (06/12/2023 10:29 AM EDT) HIV AB/AG Nonreactive Nonreactive [facility] Comment:HIV-1 p24 Ag and/or HIV-1/HIV-2 Ab not detected.A test result that is nonreactive does not exclude thepossibility of exposure to or infection with HIV-1 and/orHIV-2. Nonreactive results in this assay for individualswith prior exposure to HIV-1 and/or HIV-2 may be due toantigen and antibody levels that are below the limit ofdetection of this assay.The [facility] HIV Ag/Ab Combo assay result andsupplemental assay results should be interpreted inconjunction with the patient's clinical presentation,history and other laboratory results. If the results areinconsistent with clinical evidence, additional testing issuggested to confirm the result. Blood Venous blood specimen / Unknown 06/12/2023 10:29 AM EDT 06/12/2023 11:41 AM EDT us Danielle Hinkle NP LAB BLOOD ORDERABLES Final Resul t [facility] [address] [place], [place] [phone] * (ABNORMAL) HM PAP/HPV (10/17/2022 8:18 AM EDT) Only the most recent of2 resultswithin the time period is included. Pap Smear 2. ASCUS(A) 1. NILM us Historical Provider HEALTH MAINTENANCE Edited Result - Final from Last 3 Months or Most Recently Relevant to Health Maintenance Insurance [facility] C3 Care Teams Room Cleaner Relationship Specialty Start Date End Date Danielle Hinkle NP [address] [place] [address] PCP - General Family Medicine 2/9/24
--- OUTSIDE RECORDS SUMMARY | 2024-04-23 09:53 | XMS_ITS | Encounter Summary ---
Author Organization [employer] Address [address] [place] [address] [address] [place] [address] Care Team Providers Care Sales Support Administrator Name Role Phone Desiree Etienne Primary Care Provider [phone] Leslie ArevaloP Primary Care Provider [phone] Danielle Hinkle INSTRUCTOR [place] Primary Care Provider [phone] Encounter Details Date Type Department Care Team ([facility] st Contact Info) Description 03/07/2022 Orders Only [facility] MED & PEDS [address] [place] [address] Kate Shea LPN Social History Tobacco Use Types Packs/Day Years Used Date Smoking Tobacco: Never Assessed Comments Unknown Sex and Gender Information Value Date Recorded Sex Assigned at Female 01/17/2022 10:15 AM EDT Legal Sex Female 10:15 AM EDT Gender Identity Female 01/17/2022 10:15 AM EDT Sexual Orientation Straight 01/17/2022 10 :15 AM EDT documented as of this encounter Plan of Treatment Not on file documented as of this encounter Visit Diagnoses Not on filedocumented in this encounter Care Teams Sales Support Administrator Relationship Specialty Start Date End Date Desiree Etienne FNP PCP - General Family Medicine 03/22/21 09/25/22 Leslie Arevlao FNP [address] [place] [address] PCP - General Family Medicine 09/26/22 04/27/23 Danielle Hinkle NP [address] [place] [address] PCP - General Family Medicine 04/28/23 documented as of this encounter
--- OUTSIDE RECORDS SUMMARY | 2024-04-23 09:53 | XMS_ITS | Encounter Summary ---
Author Organization [employer] Address [address] [place] [address] Care Team Providers Care Orthopedic Assistant Name Role Phone Danielle Hinlke DANTE Primary Care Provider Encounter Details Date Type Department Care Team ([facility] st Contact Info) Description 01/16/2024 Orders Only [facility] MEDICINE [address] [place] [address] Provider, MD Shlomo Social History Tobacco Use Types Packs/Day Years [...] on file documented as of this encounter Procedures Procedure Name Priority Date/Time Associated Diagnosis Comments PAP/HPV Routine 10/17/2022 8:18 AM EDT documented in this encounter Results * (ABNORMAL) PAP/HPV (10/17/2022 8:18 AM EDT) Pap Smear 2. ASCUS(A) 1. NILM us Historical Provider HEALTH MAINTENANCE Edited Result - Final documented in this encounter Visit Diagnoses Not on filedocumented in this encounter Additional Health Concerns Assessment Noted Time PHQ-9 Depression Total Score: 0 06/12/19 24 9:01 AM EDT documented as of this encounter Care Teams Orthopedic Assistant Relationship Specialty Start Date End Date Danielle Hinkle NP [address] [place] [phone] PCP - General Family Medicine 04/28/23 documented as of this encounter
--- OUTSIDE RECORDS SUMMARY | 2024-04-23 09:53 | XMS_ITS | Encounter Summary ---
Author Organization [employer] Address [address] [place] [address] [address] [place] [address] Care Team Providers Care Excellence Coach Name Role Phone Desiree Etienne Primary Care Provider [phone] Leslie ArevaloP Primary Care Provider [phone] Danielle Hinkle MATHEMATICS DEPARTMENT CHAIR Primary Care Provider [phone] Encounter Details Date Type Department Care Team ([facility] st Contact Info) Description 04/05/2022 Orders Only [facility] MED & PEDS [address] [place] [address] Kate Shea LPN Social History Tobacco Use [...] on filedocumented in this encounter Care Teams Excellence Coach Relationship Specialty Start Date End Date Desiree Etienne FNP PCP - General Family Medicine 03/22/21 09/25/22 Leslie Arevalo FNP [address] [place] [address] PCP - General Family Medicine 09/26/22 04/27/23 Danielle Hinkle NP [address] [place] [address] PCP - General Family Medicine 04/28/23 documented as of this encounter
--- OUTSIDE RECORDS SUMMARY | 2024-04-23 09:53 | XMS_ITS | Encounter Summary ---
Author Organization [employer] Address [address] [place] [address] [address] [place] [address] Care Team Providers Care Pedodontist Name Role Phone Danielle Hinkle DANTE Primary Care Provider [phone] Encounter Details Date Type Department Care Team (Late st Contact Info) Description 04/23/2024 Orders Only GENERIC EXTERNAL DATA DEPARTMENT Provider, Generic External Data Social History Tobacco Use Types Packs/Day Years [...] AUTO DIFFERENTIAL Routine 04/23/2024 9:27 AM EST documented in this encounter Results * (ABNORMAL) CBC auto differential (04/23/2024 9:27 AM EST) White Blood Count 6.7 4.8 - 10.8 X10*3/uL [facility] Red Blood Count 5.21 4.20 - 5.50 X10*6/uL [facility] Hemoglobin 12.7 12.0 - 16.0 g/dl [facility] Hematocrit 38.7 37.0 - 47.0 % [facility] Mean Corpuscular Volume 74.3(L) 80.0 - 98.0 fL [facility] Mean Corpuscular Hemoglobin 24.4(L) 27.0 - 33.0 pg [facility] Mean Corpuscular HGB Conc 32.8 31.0 - 35.0 g/dl [facility] Red Cell Distribution Width 14.3 11.0 - 16.0 % [facility] Platelet Count 186 160 - 400 X10*3/uL [facility] Mean Platelet Volume 11.2 9.4 - 12.3 fL [facility] Neutrophils Percent Auto 68.2 45 - 73 % [facility] Imm Gran Pct Auto 0.3 0.0 - 0.4 % [facility] Lymphocytes Percent Auto 22.4 20 - 40 % [facility] Monocytes Percent Auto 8.5 2 - 11 % [facility] Eosinophils Percent Auto 0.3 0 - 4 % [facility] Basophils Percent Auto 0.3 0 - 2 % [facility] NRBC Pct Auto 0.0 0.0 - 0.2 /100WBC [facility] Neutrophils Absolute Auto 4.6 2.0 - 8.3 x10*3/uL [facility] Imm Gran Abs Auto 0.02 0.00 - 0.03 X10*3/uL [facility] Lymphocytes Absolute Auto 1.5 1.2 - 4.9 X10*3/uL [facility] Monocytes Absolute Auto 0.6 0.1 - 1.2 X10*3/uL [facility] Eosinophils Absolute Auto 0.0 0.0 - 0.4 X10*3/uL [facility] Basophils Absolute Auto 0.0 0.0 - 0.2 X10*3/uL [facility] NRBC Abs Auto 0.000 0.0 - 0.012 X10*3/uL [facility] 04/23/2024 9:27 AM EST 04/23/2024 9:32 AM EST us Generic External Data Provider LAB BLOOD ORDERAB LES Final Result Performing Organization Address City/State/[facility] Co de Phone Number [facility] [address] [place] [address] [phone] documented in this encounter Visit Diagnoses Not on filedocumented in this encounter Additional Health Concerns Assessment Noted Time PHQ-9 Depression Total Score: 0 06/12/19 9:01 AM EDT documented as of this encounter Care Teams Pedodontist Relationship Specialty Start Date End Date Danielle Hinkle NP [address] [place] [address] PCP - General Family Medicine 04/28/23 documented as of this encounter
[2024-04-23 09:57] LABS: Alanine Aminotransferase 15 U/L (0-31); Albumin Level 4.8 g/dL (3.5-5.0); Alkaline Phosphatase 78 U/L (39-117); Anion Gap 21 (12-20); Aspartate Amino Transferase 20 U/L (5-31); Bilirubin Direct 0.2 mg/dL (0.0-0.5); Bilirubin Total 0.5 mg/dL (0.0-1.0); Blood Urea Nitrogen 11 mg/dL (9-16); Calcium 9.2 mg/dL (8.4-10.2); Carbon Dioxide 24 mmol/L (22-29); Chloride 100 mmol/L (96-108); Creatinine Clr Calc Pharmacy 92.1; Estimated Glomerular Filt Rate > 60; Glucose Random 100 mg/dL (60-115); Lipase 14 U/L (8-78); Potassium 3.8 mmol/L (3.3-5.1); Sodium 141 mmol/L (135-145); Total Protein 9.4 g/dL (6.5-8.0)
[2024-04-23 10:16] LABS: HCG Quantitative 20584 mIU/mL
[2024-04-23 10:22] LABS: Influenza A PCR POSITIVE (Negative); Influenza B PCR NEGATIVE (Negative); Resp Syncy Virus RNA Qual PCR NEGATIVE (Negative); SARS COV2 PCR INHOUSE NEGATIVE (Negative)
[2024-04-23 13:22] VITALS: BP 136/66; PULSE 86; RESP 16; TEMP 37; O2SAT 98
[2024-04-23] MEDS: ondansetron HCL 4 MG/2 ML VIAL IVPUSH (13:26)
[2024-04-23] MEDS: 0.9 % Sodium Chloride 1,000 ML 999 ML IV (13:26)
--- NOTE | 2024-04-23 13:48 | ED_ITS ---
HPI - General Adult General Chief complaint: Nausea/Vomiting/Diarrhea Stated complaint: Vomiting, weakness - pt is Time Seen by Provider: 04/23/24 13:03 History of Present Illness ED Provider: Dr. Falcon HPI narrative: 23 y/o F patient; at approx 6 weeks ; presents from home with report of 5 - 6 days of nausea/vomiting. The patient states she has not been able to tolerate much PO intake. She took a home test when her symptoms started which was positive. She has not established care with OBGYN yet, first appointment is Wednesday 04/26. She otherwise denies: vaginal discharge, vaginal bleeding, abdominal pain. Related Data Previous Rx's ?Medication ?Instructions ?Recorded ibuprofen 600 mg tablet 600 mg PO Q6H PRN pain #20 tabs 10/18/20 ondansetron 4 mg disintegrating 4 mg PO Q8-12H PRN nausea and 09/21/21 tablet vomiting #5 tabs doxylamine succinate 25 mg tablet 25 mg PO BEDTIME nausea and 04/23/24 (Unisom (doxylamine)) vomiting #30 tabs ondansetron HCl 4 mg tablet 4 mg PO Q8H PRN nausea and 04/23/24 vomiting #30 tabs pyridoxine (vitamin B6) 25 mg 25 mg PO TID #30 tabs 04/23/24 tablet Allergies Allergy/AdvReac Type Severity Reaction Status Date / Time No Known Allergies Allergy Verified 04/23/24 09:12 Review of Systems 2 Review of Systems: Yes all other systems are reviewed and are negative PMFSH Past Medical History Attestation statement: The following information was validated with the patient. Source: old records reviewed Medical History No acute medical problems Surgical History No history of previous surgery Social History Social History Smoked in Last 30 Days: No Use of substances other than those prescribed or required for medical reasons: No Advance Directives: No Advance Directives Information Provided: No Patient : Yes Physical Exam ED Vital Signs: Vital Signs - 24 hr 04/23/24 09:08 04/23/24 13:22 Temperature 98.6 F 98.6 F Pulse Rate 87 86 Respiratory Rate 16 16 Blood Pressure 138/75 136/66 Pulse Oximetry 98 98 Oxygen Delivery Method Room Air Room Air BMI result Body Mass Index 34.7 Patient is afebrile and hemodynamically stable. Const General: cooperative and no acute distress HENMT Head: Yes normal to inspection and Yes atraumatic Eyes General: appearance normal, both eyes and all related structures Pupils: Equal, round and reactive pupils present EOM: EOMs intact bilaterally Neck Neck: Yes normal visual inspection, Yes full ROM, Yes supple and No tender Chest Chest palpation & inspection: normal inspection of the chest and normal palpation of entire chest wall Resp Effort & Inspection: normal respiratory effort, able to speak in complete sentences, no cough and no respiratory distress Auscultation: clear to auscultation bilaterally Cardio Rate: regular rate Rhythm: regular rhythm Peripheral pulses: Peripheral pulses 2+ throughout GI Inspection: Yes normal to inspection, No Abdominal wall edema and No distended Palpation (GI): Soft to palpation, not firm, nontender, no guarding and not rigid Auscultation: normal bowel sounds Back/Spine/Pelvis Back: No back tenderness Neuro Cranial nerves: Yes Equal, round and reactive pupils present Course Course Course Narrative: Patient is afebrile and hemodynamically stable. Will obtain labs and US Pelvis. Providing 1L IV fluid and Zofran 8mg IV. Influenza positive. US Pelvis notable for single live intra-uterine 5 weeks 6 days with HR 102BPM. Patient informed is located but HR is slow. She has appointment for follow up with OBGYN on this Monday. Patient is tolerating PO without difficulty. Rx Zofran, B6, Unisom sent to pharmacy. Discussed that given 5 - 6 days of symptoms, and already having nausea/vomiting - patient is not a good candidate for tamiflu. Patient is in agreement. Plan: Discharge to home with PCP and OBGYN follow up Return precautions given Medications Administered Generic Name Dose Route Start Last Admin Trade Name Freq PRN Reason Stop Dose Admin Sodium Chloride 1,000 mls @ 999 mls/hr 04/23/24 13:30 04/23/24 13:26 Ns IV 04/23/24 14:30 999 mls/hr .Q1H1M GABE Administration Discontinued Medications Generic Name Dose Route Start Last Admin Trade Name Freq PRN Reason Stop Dose Admin Ondansetron HCl 4 mg 04/23/24 13:20 04/23/24 13:26 Ondansetron Hcl 4 Mg/2 Ml Vial IVPUSH 04/23/24 13:21 4 mg ONCE ONE Administration Medical Decision Making Lab Data 04/23/24 09:27 04/23/24 09:27 Labs: Lab Results 04/23/24 Range/Units 09:27 WBC 6.7 (4.8-10.8) X10*3/uL RBC 5.21 (4.20-5.50) X10*6/uL Hgb 12.7 (12.0-16.0) g/dl Hct 38.7 (37.0-47.0) % MCV 74.3 L (80.0-98.0) fL MCH 24.4 L (27.0-33.0) pg MCHC 32.8 (31.0-35.0) g/dl RDW 14.3 (11.0-16.0) % Plt Count 186 (160-400) X10*3/uL MPV 11.2 (9.4-12.3) fL Immature Gran % (Auto) 0.3 (0.0-0.4) % Neut % (Auto) 68.2 (45-73) % Lymph % (Auto) 22.4 (20-40) % Stark % (Auto) 8.5 (2-11) % Eos % (Auto) 0.3 (0-4) % Baso % (Auto) 0.3 (0-2) % Lymph # (Auto) 1.5 (1.2-4.9) X10*3/uL Stark # (Auto) 0.6 (0.1-1.2) X10*3/uL Eos # (Auto) 0.0 (0.0-0.4) X10*3/uL Baso # (Auto) 0.0 (0.0-0.2) X10*3/uL Abs Immat Gran (auto) 0.02 (0.00-0.03) X10*3/uL Absolute Neuts (auto) 4.6 (2.0-8.3) x10*3/uL Absolute Nucleated RBC 0.000 (0.0-0.012) X10*3/uL Nucleated RBC % (auto) 0.0 (0.0-0.2) /100WBC Sodium 141 (135-145) mmol/L Potassium 3.8 (3.3-5.1) mmol/L Chloride 100 (96-108) mmol/L Carbon Dioxide 24 (22-29) mmol/L Anion Gap 21 H (12-20) BUN 11 (9-16) mg/dL Creatinine 0.95 (0.5-1.4) mg/dL Estim Creat Clear Calc 92.1 Estimated GFR > 60 Random Glucose 100 (60-115) mg/dL Calcium 9.2 (8.4-10.2) mg/dL Total Bilirubin 0.5 (0.0-1.0) mg/dL Direct Bilirubin 0.2 (0.0-0.5) mg/dL AST 20 (5-31) U/L ALT 15 (0-31) U/L Alkaline Phosphatase 78 (39-117) U/L Total Protein 9.4 H (6.5-8.0) g/dL Albumin 4.8 (3.5-5.0) g/dL Lipase 14 (8-78) U/L Beta HCG, Quant 53053 mIU/mL Influenza Type A (PCR) POSITIVE A (Negative) Influenza Type B (PCR) NEGATIVE (Negative) RSV RNA Qual (PCR) NEGATIVE (Negative) SARS-CoV-2 RNA (RT-PCR) NEGATIVE (Negative) Radiology Impression Discussion of test interpretation with radiology: I have reviewed the radiologist's reading. Radiologist Impression: EXAMINATION: US FIRST TRIMESTER OB HISTORY: abd pain, 6 wks preg TECHNIQUE: Endovaginal scanning was performed. FINDINGS: There is a single, live intrauterine . Incidental note is made of a calcified fibroid on the left measuring 2.7 x 2.0 x 2.2 cm. An additional left-sided fibroid is noted measuring 1.1 x 0.7 x 1.1 cm. AUA = 5 weeks 6 days MARGARITA(AUA) = 12/18/2024 LMP = 03/11/2024 GA(LMP) = 6 weeks 1 days MARGARITA(LMP) = 12/16/2024 CRL = 0.25 cm Yolk Sac: seen FHR = 102 bpm Right ovary: The right ovary is unremarkable in appearance measuring 3.2 x 1.9 x 2.2 cm. Left ovary: The left ovary is not visualized. Cul-de-sac: No free fluid US/US OB pelvic and transvaginal IMPRESSION: Single, live intrauterine of estimated gestational age 5 weeks, 6 days. The heart rate is 102 bpm which is low. Follow-up is recommended.. Electronically signed by: Edward Spain MD 04/23/2024 01:26 PM EST RP Discharge Plan Discharge Clinical Impression: Influenza A, First trimester Patient Disposition: Home, Self-Care Instructions: Influenza (ED) Additional Instructions: Beta Quant US FIRST TRIMESTER OB HISTORY: abd pain, 6 wks preg TECHNIQUE: Endovaginal scanning was performed. FINDINGS: There is a single, live intrauterine . Incidental note is made of a calcified fibroid on the left measuring 2.7 x 2.0 x 2.2 cm. An additional left-sided fibroid is noted measuring 1.1 x 0.7 x 1.1 cm. AUA = 5 weeks 6 days MARGARITA(AUA) = 12/18/2024 LMP = 03/11/2024 GA(LMP) = 6 weeks 1 days MARGARITA(LMP) = 12/16/2024 CRL = 0.25 cm Yolk Sac: seen FHR = 102 bpm Right ovary: The right ovary is unremarkable in appearance measuring 3.2 x 1.9 x 2.2 cm. Left ovary: The left ovary is not visualized. Cul-de-sac: No free fluid US/US OB pelvic and transvaginal IMPRESSION: Single, live intrauterine of estimated gestational age 5 weeks, 6 days. The heart rate is 102 bpm which is low. Follow-up is recommended.. Electronically signed by: Edward Spain MD 04/23/2024 01:26 PM EST RP Prescriptions: New Unisom (doxylamine) 25 mg tablet 25 mg PO BEDTIME Qty: 30 0RF pyridoxine (vitamin B6) 25 mg tablet 25 mg PO TID Qty: 30 0RF ondansetron HCl 4 mg tablet 4 mg PO Q8H PRN (Reason: nausea and vomiting) Qty: 30 0RF No Action ibuprofen 600 mg tablet 600 mg PO Q6H PRN (Reason: pain) Qty: 20 0RF ondansetron 4 mg tablet,disintegrating 4 mg PO Q8-12H PRN (Reason: nausea and vomiting) Qty: 5 0RF Print Language: [place]
[2024-04-23 14:26] VITALS: BP 129/66; PULSE 88; RESP 16; TEMP 37; O2SAT 98
== END 2024-04-23 15:04 | disposition home or self-care (01) ==
PROVIDERS: Emergency Provider Emergency Medicine
DX: O98.511 Other viral diseases complicating pregnancy, first trimester (principal); O21.0 Mild hyperemesis gravidarum; R10.2 Pelvic and perineal pain; Z3A.01 Less than 8 weeks gestation of pregnancy; Z03.818 Encounter for observation for suspected exposure to other biological agents ruled out; Z79.899 Other long term (current) drug therapy
CPT/HCPCS: 0241U; 36415; 76801; 76817; 80048; 80076; 83690; 84702; 85025; 96361; 96374; 99284; J2405

== ENCOUNTER 2024-08-31 22:07 | Emergency (ER) | payer OTHER, SELFPAY ==
--- NOTE | ~2024-08-31 | US_ITS ---
CLINICAL HISTORY: GA 25 weeks , vaginal bleeding OB Ultrasound Transabdominal Comparison: None Findings: presentation is cephalic. Placenta is anterior. No demonstrated evidence of previa or abruption. Closed cervix 4.6 cm length. Amniotic fluid is qualitatively within normal limits. IMPRESSION: Closed cervix. No evidence of placenta previa or abruption. This document has been electronically signed by: Mayco Coello MD on 09/01/2024 01:54:44
[2024-08-31 22:12] VITALS: BP 112/63; PULSE 98; RESP 18; TEMP 36.8; O2SAT 98; BMI 38.7
--- NOTE | 2024-08-31 22:48 | ED_ITS ---
HPI - General Chief complaint: Vaginal Bleeding Stated complaint: 25 weeks preg bleeding Time Seen by Provider: 08/31/24 22:32 Source: patient Mode of arrival: ambulatory Limitations: no limitations History of Present Illness ED Provider: Dr. Brandi Kilpatrick HPI Narrative: Patient comes to the emergency room complaining of bright red vaginal bleeding. Patient is a at 25 weeks of gestational age. Patient states that today she was taking a shower, in the noted that she was passing blood clots. Patient states that she put her finger inside of her vagina and noted that there was more blood. Patient denies any abdominal pain, pressure, back pain or cramping. Patient came immediately to the emergency room. Patient states that she has been feeling her baby moving. Related Data Previous Rx's ?Medication ?Instructions ?Recorded ibuprofen 600 mg tablet 600 mg PO Q6H PRN pain #20 tabs 10/18/20 ondansetron 4 mg disintegrating 4 mg PO Q8-12H PRN nausea and 09/21/21 tablet vomiting #5 tabs doxylamine succinate 25 mg tablet 25 mg PO BEDTIME nausea and 04/23/24 (Unisom (doxylamine)) vomiting #30 tabs ondansetron HCl 4 mg tablet 4 mg PO Q8H PRN nausea and 04/23/24 vomiting #30 tabs pyridoxine (vitamin B6) 25 mg 25 mg PO TID #30 tabs 04/23/24 tablet ferrous gluconate 240 mg (27 mg 240 mg PO DAILY #60 tabs 09/01/24 iron) tablet Allergies Allergy/AdvReac Type Severity Reaction Status Date / Time No Known Allergies Allergy Verified 08/31/24 22:14 Review of Systems 2 Review of Systems: Constitutional : No Weight loss, No Fever, No Chills, No Night Sweats, No Fatigue, No Malaise ENT/Mouth : No Hearing loss, No Ear Pain, No Nasal Congestion, No Sinus Pain, No Hoarseness, No sore throat, No Rhinorrhea, No Swallowing Difficulty Eyes: No Eye Pain, No Swelling, No Redness, No Foreign Body, No Discharge, No Vision Changes Cardiovascular : No Chest Pain, No SOB, No Dyspnea on Exertion, No Orthopnea, No Edema, No Palpitations Respiratory : No Cough, No Sputum, No Wheezing, No Smoke Exposure, No Dyspnea Gastrointestinal : No Nausea, No Vomiting, No Diarrhea, No Constipation, No abdominal Pain, No Hematochezia, No Melena Genitourinary : Complaining of vaginal bleeding, passing blood clots, states she has been feeling her baby moving. No Dysuria, No Urinary Frequency, No Hematuria, No Urinary Incontinence, No Urgency, No Flank Pain, No Urinary Flow Changes, No Hesitancy Musculoskeletal : No joint pain, No Myalgias, No Joint Swelling Skin : No Skin Lesions, No rash Neuro : No Weakness, No Numbness, No Paresthesias, No Loss of Consciousness, No Dizziness, No Headache Psych : No Anxiety/Panic, No Depression, No SI/HI/AH/VH, No Social Issues, Heme/Lymph: No Bruising, No Bleeding,No Lymphadenopathy Endocrine : No Polyuria, No Polydipsia, No Temperature Intolerance PMFSH Past Medical History Medical History No acute medical problems Surgical History No history of previous surgery Social History Social History Advance Directives: No Advance Directives Information Provided: No Patient : Yes Physical Exam 2 Vital Signs: Vital Signs: Last Vital Signs Temp 98.0 F 09/01/24 01:34 Pulse 94 09/01/24 01:34 Resp 17 09/01/24 01:34 BP 101/55 L 09/01/24 01:34 Pulse Ox 96 09/01/24 01:34 O2 Del Method Room Air 09/01/24 01:34 BMI result Body Mass Index 38.7 Const: Other: Appearance: Alert. Oriented X3. No acute distress. Eyes: Pupils equal, round and reactive to light. ENT: Pharynx normal. Neck: Normal inspection. Neck supple. No lymph nodes noted. No crepitus CVS: Normal heart rate and rhythm. Pulses normal. Normal S1 and S2 Respiratory: No respiratory distress. Breath sounds normal. No Wheezing. No rales Abdomen: Soft and nontender. Gravid uterus, bedside ultrasound shows a heart rate of 130, good movement : The cervix is closed, there is no blood at all in the vaginal canal, not even signs of spotting or old blood Skin: Skin warm and dry. Normal skin color. Normal skin turgor. Extremities: No lower extremity edema. No Lacerations. No Rash Neuro: Oriented X 3. No motor deficit. No sensory deficit. Moving all extremities. No slurred speech. CN 2 through 12 grossly intact Psych: calm, cooperative, normal affect Course Course Course Narrative: at 25 weeks of gestational age comes complaining of bright red vaginal bleeding/blood clots without any abdominal pain Physical exam is reassuring, cervix is closed, no blood in the vaginal vault, vitals stable/normal Blood work and Ultrasound pending Medical Decision Making Medical Decision Making [facility] Narrative: My interpretation of labs: Patient's hemoglobin is 8.7. Previously 4 months ago was 12.7. Second set of hemoglobin shows a hemoglobin again of 8.7, no changes. Chemistry within normal limits. LFTs andres Ultrasound does not show any acute abnormality. presentation is cephalic, cervix is closed. In the reported did not mentioned heart rate, but I did a bedside ultrasound, showing a heart rate in the 130s. Patient is asymptomatic, denies any abdominal pain. Patient has an appointment in a few days with her OBGYN. Patient states that she is supposed to be taking vitamins but it makes her feel nauseous the chalky taste. Patient states that she has an appointment in 2 days with OBGYN I considered transferring the patient to [facility]. However, patient has been here for over 4 hours, patient is completely asymptomatic, no signs of vaginal bleeding at all. Not even on cervical physical exam, no abnormality on ultrasound. Differential Diagnosis Differential Diagnoses: The differential diagnosis associated with the presentation includes (Threatened , missed ) Admission/Observation Consideration of admission/observation: Escalation of care including admission/observation considered Lab Data [facility] Lab Attestation statement: I reviewed the patient's lab results. 09/01/24 01:46 08/31/24 22:54 Labs: Lab Results 08/31/24 09/01/24 Range/Units 22:54 01:46 WBC 9.5 10.3 (4.8-10.8) X10*3/uL RBC 3.64 L D 3.66 L (4.20-5.50) X10*6/uL Hgb 8.7 L D 8.7 L (12.0-16.0) g/dl Hct 26.4 L D 26.4 L (37.0-47.0) % MCV 72.5 L 72.1 L (80.0-98.0) fL MCH 23.9 L 23.8 L (27.0-33.0) pg MCHC 33.0 33.0 (31.0-35.0) g/dl RDW 14.3 14.3 (11.0-16.0) % Plt Count 145 L 156 L (160-400) X10*3/uL MPV 11.3 11.2 (9.4-12.3) fL Immature Gran % (Auto) 0.6 H 0.7 H (0.0-0.4) % Neut % (Auto) 68.6 69.3 (45-73) % Lymph % (Auto) 22.8 22.8 (20-40) % Sawyer % (Auto) 6.1 5.3 (2-11) % Eos % (Auto) 1.7 1.7 (0-4) % Baso % (Auto) 0.2 0.2 (0-2) % Lymph # (Auto) 2.2 2.3 (1.2-4.9) X10*3/uL Sawyer # (Auto) 0.6 0.5 (0.1-1.2) X10*3/uL Eos # (Auto) 0.2 0.2 (0.0-0.4) X10*3/uL Baso # (Auto) 0.0 0.0 (0.0-0.2) X10*3/uL Abs Immat Gran (auto) 0.06 H 0.07 H (0.00-0.03) X10*3/uL Absolute Neuts (auto) 6.5 7.1 (2.0-8.3) x10*3/uL Absolute Nucleated RBC 0.000 0.000 (0.0-0.012) X10*3/uL Nucleated RBC % (auto) 0.0 0.0 (0.0-0.2) /100WBC Sodium 140 (135-145) mmol/L Potassium 3.7 (3.3-5.1) mmol/L Chloride 112 H (96-108) mmol/L Carbon Dioxide 20 L (22-29) mmol/L Anion Gap 12 (12-20) BUN 5 L (9-16) mg/dL Creatinine 0.60 (0.5-1.4) mg/dL Estim Creat Clear Calc 153.4 Estimated GFR > 60 Random Glucose 101 (60-115) mg/dL Calcium 8.7 (8.4-10.2) mg/dL Total Bilirubin 0.2 (0.0-1.0) mg/dL Direct Bilirubin < 0.2 (0.0-0.5) mg/dL AST 8 (5-31) U/L ALT < 6 (0-31) U/L Alkaline Phosphatase 80 (39-117) U/L Total Protein 6.4 L (6.5-8.0) g/dL Albumin 3.4 L (3.5-5.0) g/dL Beta HCG, Quant 06630 mIU/mL Blood Type O Positive Discharge Plan Discharge Clinical Impression: Threatened Patient Disposition: Home, Self-Care Instructions: Threatened Miscarriage (ED) Additional Instructions: Please take your iron tablet with orange juice. Please follow-up with your primary care physician tomorrow. If you have any worsening or new symptoms, please return to the emergency room or call 911 Prescriptions: New ferrous gluconate 240 mg (27 mg iron) tablet 240 mg PO DAILY Qty: 60 0RF No Action ibuprofen 600 mg tablet 600 mg PO Q6H PRN (Reason: pain) Qty: 20 0RF ondansetron 4 mg tablet,disintegrating 4 mg PO Q8-12H PRN (Reason: nausea and vomiting) Qty: 5 0RF Unisom (doxylamine) 25 mg tablet 25 mg PO BEDTIME Qty: 30 0RF pyridoxine (vitamin B6) 25 mg tablet 25 mg PO TID Qty: 30 0RF ondansetron HCl 4 mg tablet 4 mg PO Q8H PRN (Reason: nausea and vomiting) Qty: 30 0RF Print Language: [place]
[2024-08-31 23:00] LABS: Basophils Percent Auto 0.2 % (0-2); Eosinophils Absolute Auto 0.2 X10*3/uL (0.0-0.4); Eosinophils Percent Auto 1.7 % (0-4); Hematocrit 26.4 % (37.0-47.0); Hemoglobin 8.7 g/dl (12.0-16.0); Imm Gran Abs Auto 0.06 X10*3/uL (0.00-0.03); Imm Gran Pct Auto 0.6 % (0.0-0.4); Lymphocytes Absolute Auto 2.2 X10*3/uL (1.2-4.9); Lymphocytes Percent Auto 22.8 % (20-40); MANUAL DIFF FLAG NO; Mean Corpuscular Hemoglobin 23.9 pg (27.0-33.0); Mean Corpuscular Volume 72.5 fL (80.0-98.0); Mean Platelet Volume 11.3 fL (9.4-12.3); Monocytes Absolute Auto 0.6 X10*3/uL (0.1-1.2); Monocytes Percent Auto 6.1 % (2-11); Neutrophils Absolute Auto 6.5 x10*3/uL (2.0-8.3); Neutrophils Percent Auto 68.6 % (45-73); Platelet Count 145 X10*3/uL (160-400); Red Blood Count 3.64 X10*6/uL (4.20-5.50); Red Cell Distribution Width 14.3 % (11.0-16.0); White Blood Count 9.5 X10*3/uL (4.8-10.8)
[2024-08-31 23:17] VITALS: BP 102/52; PULSE 89; RESP 16; TEMP 36.6; O2SAT 98
[2024-08-31 23:27] LABS: Alanine Aminotransferase < 6 U/L (0-31); Albumin Level 3.4 g/dL (3.5-5.0); Alkaline Phosphatase 80 U/L (39-117); Anion Gap 12 (12-20); Aspartate Amino Transferase 8 U/L (5-31); Bilirubin Direct < 0.2 mg/dL (0.0-0.5); Bilirubin Total 0.2 mg/dL (0.0-1.0); Blood Urea Nitrogen 5 mg/dL (9-16); Calcium 8.7 mg/dL (8.4-10.2); Carbon Dioxide 20 mmol/L (22-29); Chloride 112 mmol/L (96-108); Creatinine Clr Calc Pharmacy 153.4; Estimated Glomerular Filt Rate > 60; Glucose Random 101 mg/dL (60-115); HCG Quantitative 12426 mIU/mL; Potassium 3.7 mmol/L (3.3-5.1); Sodium 140 mmol/L (135-145); Total Protein 6.4 g/dL (6.5-8.0)
[2024-09-01 01:34] VITALS: BP 101/55; PULSE 94; RESP 17; TEMP 36.7; O2SAT 96
[2024-09-01 01:51] LABS: MANUAL DIFF FLAG NO
[2024-09-01 01:52] LABS: Basophils Percent Auto 0.2 % (0-2); Eosinophils Absolute Auto 0.2 X10*3/uL (0.0-0.4); Eosinophils Percent Auto 1.7 % (0-4); Hematocrit 26.4 % (37.0-47.0); Hemoglobin 8.7 g/dl (12.0-16.0); Imm Gran Abs Auto 0.07 X10*3/uL (0.00-0.03); Imm Gran Pct Auto 0.7 % (0.0-0.4); Lymphocytes Absolute Auto 2.3 X10*3/uL (1.2-4.9); Lymphocytes Percent Auto 22.8 % (20-40); Mean Corpuscular Hemoglobin 23.8 pg (27.0-33.0); Mean Corpuscular Volume 72.1 fL (80.0-98.0); Mean Platelet Volume 11.2 fL (9.4-12.3); Monocytes Absolute Auto 0.5 X10*3/uL (0.1-1.2); Monocytes Percent Auto 5.3 % (2-11); Neutrophils Absolute Auto 7.1 x10*3/uL (2.0-8.3); Neutrophils Percent Auto 69.3 % (45-73); Platelet Count 156 X10*3/uL (160-400); Red Blood Count 3.66 X10*6/uL (4.20-5.50); Red Cell Distribution Width 14.3 % (11.0-16.0); White Blood Count 10.3 X10*3/uL (4.8-10.8)
[2024-09-01 03:26] VITALS: BP 101/55; PULSE 94; RESP 17; TEMP 36.7; O2SAT 96
== END 2024-09-01 03:27 | disposition home or self-care (01) ==
PROVIDERS: Emergency Provider Emergency Medicine
DX: O20.0 Threatened abortion (principal); Z3A.25 25 weeks gestation of pregnancy
CPT/HCPCS: 36415; 76815; 80048; 80076; 84702; 85025; 86900; 86901; 99283; 99284

== ENCOUNTER → 2024-09-01 01:00 | Outpatient (BNV) | payer OTHER, SELFPAY | PROVIDERS: Emergency Provider Emergency Medicine; Visit Provider Radiology Diagnostic Radiology | DX: O26.852 Spotting complicating pregnancy, second trimester (principal) | CPT/HCPCS: 76815 ==